=== PATIENT | female | born 1995 | race Caucasian/White ===

== ENCOUNTER 2024-07-15 17:15 | Emergency (ER) | payer OTHER ==
[~2024-07-15] VITALS: Ht 167.6 cm; Wt 81.6 kg
[2024-07-15 19:14] LABS: BASOPHILS # (AUTO) 0.1 K/uL (0.0-0.2); BASOPHILS % (AUTO) 0.7 % (0.0-2.0); EOSINOPHILS # (AUTO) 0.1 K/uL (0.0-0.7); EOSINOPHILS % (AUTO) 1.2 % (0.0-6.0); HEMATOCRIT 44 % (33-45); LYMPHOCYTES # (AUTO) 2.7 K/uL (0.8-4.8); LYMPHOCYTES % (AUTO) 26.4 % (20.0-44.0); MEAN CORPUSCULAR HEMOGLOBIN 31 PG (26.0-33.0); MEAN CORPUSCULAR HGB CONC 34 g/dl (31.0-36.0); MEAN CORPUSCULAR VOLUME 91 fL (82-100); MONOCYTES # (AUTO) 0.5 K/uL (0.1-1.30); MONOCYTES % (AUTO) 5.2 % (2.0-12.0); NEUTROPHILS # (AUTO) 6.8 K/uL (1.8-8.9); NEUTROPHILS % (AUTO) 66.5 % (43.0-81.0); PLATELET COUNT (AUTO) 338 K/uL (150-450); RED BLOOD CELL COUNT(AUTO) 4.87 MIL/uL (4.0-5.2); RED CELL DISTRIBUTION WIDTH 13.2 % (11.5-15.0); WHITE BLOOD COUNT (AUTO) 10.3 K/uL (4.3-11.0)
[2024-07-15 20:02] LABS: CALCIUM, SERUM 8.9 mg/dL (8.5-10.1); CREATININE 0.7 mg/dL (0.6-1.3)
[2024-07-15] MEDS ORDERED: IV NS 0.9% 250 ML IV ONE (20:28)
[2024-07-15] MEDS ORDERED: CT SWABBABLE VALVE TRANS SET 1 EA INFUS.SET MC ONE (20:28)
[2024-07-15] MEDS ORDERED: IOHEXOL-300 100 ML VIAL IV ONE (20:28)
[2024-07-15] MEDS ORDERED: AMOX-430 PO (21:21)
[2024-07-15 21:47] VITALS: BP 117/75; TEMP 98.3; O2SAT 98
== END 2024-07-15 21:47 | disposition home or self-care (01) ==
LOC: ER 17:19
DX: H01.006 Unspecified blepharitis left eye, unspecified eyelid (principal); L03.213 Periorbital cellulitis; Z60.2 Problems related to living alone; Z88.1 Allergy status to other antibiotic agents; Z88.2 Allergy status to sulfonamides
CPT/HCPCS: 99285; 70487; 85025; 80048; 36415; J7050; Q9967